=== PATIENT | female | born 1990 | race African-American/Black ===

== ENCOUNTER 2019-01-12 05:03 | Emergency (ER) | payer OTHER ==
[~2019-01-12] VITALS: Ht 154.9 cm; Wt 72.6 kg
[2019-01-12 06:56] LABS: URINE BILIRUBIN NEGATIVE (Negative); URINE BLOOD NEGATIVE (Negative); URINE CLARITY CLEAR; URINE COLOR YELLOW; URINE GLUCOSE-RANDOM* NEGATIVE (Negative); URINE KETONES NEGATIVE (Negative); URINE LEUKOCYTES-REFLEX NEGATIVE (Negative); URINE NITRITE-REFLEX NEGATIVE (Negative); URINE PROTEIN (DIPSTICK) NEGATIVE (Negative); URINE UROBILINOGEN 0.2 E.U./dl (0.2-1.0)
[2019-01-12] MEDS ORDERED: PROBIOTIC1 EAC7 PO (07:16)
[2019-01-12] MEDS ORDERED: NAPROSYN500 MG PO (07:29)
[2019-01-12] MEDS ORDERED: TRIAMCINOLONE A15 G3 TOP (07:29)
[2019-01-12] MEDS ORDERED: DOXYCYCLINE HY100 M3 PO (08:56)
[2019-01-12 09:00] VITALS: BP 93/61
== END 2019-01-12 09:23 | disposition home or self-care (01) ==
LOC: ER 05:03
PROVIDERS: Emergency Medicine
DX: M79.671 Pain in right foot (principal); L25.9 Unspecified contact dermatitis, unspecified cause; R10.2 Pelvic and perineal pain; F17.210 Nicotine dependence, cigarettes, uncomplicated; Z88.6 Allergy status to analgesic agent; Z88.5 Allergy status to narcotic agent

== ENCOUNTER 2019-01-16 12:52 | Emergency (ER) | payer OTHER ==
[~2019-01-16] VITALS: Ht 154.9 cm; Wt 71.2 kg
[~2019-01-16 12:52] MED LIST: DOXYCYCLINE HY100 M3 PO; NAPROSYN500 MG PO; PROBIOTIC1 EAC7 PO; TRIAMCINOLONE A15 G3 TOP
[2019-01-16] MEDS ORDERED: PRILOSEC OTC20 MG PO (14:46)
[2019-01-16 15:11] VITALS: BP 106/62
== END 2019-01-16 15:20 | disposition home or self-care (01) ==
LOC: ER 12:52
DX: R13.10 Dysphagia, unspecified (principal); R07.9 Chest pain, unspecified; F17.210 Nicotine dependence, cigarettes, uncomplicated; Z88.6 Allergy status to analgesic agent

== ENCOUNTER 2019-05-03 07:49 | Emergency (ER) | payer OTHER ==
[~2019-05-03] VITALS: Ht 154.9 cm; Wt 69.0 kg
[2019-05-03 07:49] VITALS: BP 107/73
[~2019-05-03 07:49] MED LIST changes: +PRILOSEC OTC20 MG PO
[2019-05-03] MEDS ORDERED: SUPER THERAVIT1 EACH PO (07:57)
[2019-05-03] MEDS ORDERED: HAIR, SKIN & N1 EAC2 PO (07:58)
[2019-05-03] MEDS ORDERED: BENTYL 20 MG TA20 M1 PO (08:11)
[2019-05-03] MEDS ORDERED: ZOFRAN ODT4 MG PO (08:11)
[2019-05-03] MEDS ORDERED: IMODIUM A-D2 MG PO (08:11)
== END 2019-05-03 08:23 | disposition home or self-care (01) ==
LOC: ER 07:49
DX: R19.7 Diarrhea, unspecified (principal); R21 Rash and other nonspecific skin eruption; L29.9 Pruritus, unspecified; F17.210 Nicotine dependence, cigarettes, uncomplicated; Z79.899 Other long term (current) drug therapy; Z88.6 Allergy status to analgesic agent

== ENCOUNTER 2019-05-08 15:14 | Emergency (ER) | payer OTHER ==
[~2019-05-08] VITALS: Ht 154.9 cm; Wt 69.0 kg
[~2019-05-08 15:14] MED LIST changes: +BENTYL 20 MG TA20 M1 PO; +HAIR, SKIN & N1 EAC2 PO; +IMODIUM A-D2 MG PO; +SUPER THERAVIT1 EACH PO; +ZOFRAN ODT4 MG PO
[2019-05-08 17:33] VITALS: BP 115/74
== END 2019-05-08 17:34 | disposition home or self-care (01) ==
LOC: ER 15:14
DX: J06.9 Acute upper respiratory infection, unspecified (principal); R05 Cough; F17.210 Nicotine dependence, cigarettes, uncomplicated; Z88.5 Allergy status to narcotic agent; Z88.6 Allergy status to analgesic agent; Z79.899 Other long term (current) drug therapy; Z98.890 Other specified postprocedural states; Z98.51 Tubal ligation status

== ENCOUNTER 2019-08-19 13:49 | Emergency (ER) | payer OTHER ==
[~2019-08-19] VITALS: Ht 154.9 cm; Wt 72.6 kg
[2019-08-19 15:01] LABS: ABSOLUTE NEUTROPHILS 9.8 thou/uL (1.4-8.2); BASOPHILS 0.3 % (0.0-2.0); HEMATOCRIT 39.3 % (37.0-47.0); HEMOGLOBIN 13.3 gm/dL (12.0-15.0); LYMPHOCYTES 24.1 % (24.0-44.0); MCH 31.1 pg (26.0-34.0); MCHC 33.7 g/dL (28.0-37.0); MCV 92.1 fL (80.0-100.0); MONOCYTES 3.7 % (1.0-8.0); PLATELET COUNT 349 thou/uL (150-400); POLYS 71.9 % (36.0-66.0); RBC 4.27 mil/uL (4.20-5.00); RDW 14.1 % (10.5-14.5); WBC 13.7 thou/uL (4.0-11.0)
[2019-08-19 15:13] LABS: ANION GAP 9 mmol/L (7-16); BUN 8 mg/dL (7-18); CALCIUM 9.1 mg/dL (8.5-10.1); CHLORIDE 102 mmol/L (98-107); CO2 28 mmol/L (21-32); CREATININE 0.9 mg/dL (0.6-1.0); GLUCOSE 137 mg/dL (74-106); POTASSIUM 3.4 mmol/L (3.5-5.1); SODIUM 139 mmol/L (136-145)
[2019-08-19 15:24] LABS: ALBUMIN 3.5 g/dL (3.4-5.0); MAGNESIUM 1.9 mg/dL (1.8-2.4); SGOT 14 U/L (15-37); SGPT 20 U/L (30-65); TOTAL BILIRUBIN 0.1 mg/dL (0.2-1.0); TOTAL PROTEIN 7.7 g/dL (6.4-8.2); TROPONIN-I <0.06 ng/mL (<0.06)
--- NOTE | 2019-08-19 16:09 | EKG ---
[facility] [place] [address] ELECTROCARDIOGRAM REPORT Name: ADELITA GALLO Room #: [facility]..#: [id number] Admission: 08/19/19 Attend Phys: Discharge: Date of : 86 Report #: [id number] THIS REPORT FOR: cc: ARVIND - [place] family physician/PCP ARVIND - [place] family physician/PCP Alessandro Lucio MD [facility] THIS REPORT FOR: //name// [facility] ED Test Date: 2019-08-19 Test Time: 14:57:08 Pat Name: ADELITA GALLO Department: Room: Gender: F [employer]: : 1990 Requested By: Ever Israel Order Number: [id number] MD: Alessandro Lucio Measurements Intervals [place] Rate: 69 P: 43 NV: 150 QRS: 53 QRSD: 83 T: 23 QT: 388 QTc: 416 Interpretive Statements Sinus rhythm No significant abnormality No previous ECG available for comparison Electronically Signed On 08-19-2019 16:09:00 CDT by Alessandro Lucio [email or web address] <ELECTRONICALLY SIGNED> By: Alessandro Lucio MD, [facility] 08/19/19 1609 [id number] Alessandro Lucio MD, FACC /EPI
[2019-08-19 16:28] LABS: URINE BILIRUBIN NEGATIVE (Negative); URINE BLOOD TRACE (Negative); URINE CLARITY CLEAR; URINE COLOR YELLOW; URINE GLUCOSE-RANDOM* TRACE (Negative); URINE KETONES NEGATIVE (Negative); URINE LEUKOCYTES-REFLEX NEGATIVE (Negative); URINE NITRITE-REFLEX NEGATIVE (Negative); URINE PROTEIN (DIPSTICK) NEGATIVE (Negative); URINE SPECIFIC GRAVITY >= 1.030 (1.005-1.035); URINE UROBILINOGEN 0.2 E.U./dl (0.2-1.0)
[2019-08-19 16:38] LABS: AMP/METHAMP Negative (Negative); BARBITURATES Negative (Negative); BENZODIAZEPINES Negative (Negative); COCAINE Negative (Negative); METHADONE Negative (Negative); OPIATES Negative (Negative); PCP Negative (Negative)
[2019-08-19 18:05] VITALS: BP 112/64
== END 2019-08-19 17:45 | disposition home or self-care (01) ==
LOC: ER 13:49
PROVIDERS: Emergency Medicine
DX: S00.83XA Contusion of other part of head, initial encounter (principal); S83.92XA Sprain of unspecified site of left knee, initial encounter; S63.614A Unspecified sprain of right ring finger, initial encounter; R55 Syncope and collapse; R35.0 Frequency of micturition; F17.210 Nicotine dependence, cigarettes, uncomplicated; Z79.899 Other long term (current) drug therapy; Z88.5 Allergy status to narcotic agent; W19.XXXA Unspecified fall, initial encounter; Y93.89 Activity, other specified; Y92.89 Other specified places as the place of occurrence of the external cause; Y99.8 Other external cause status

== ENCOUNTER 2020-03-03 13:17 | Emergency (ER) | payer OTHER ==
[~2020-03-03] VITALS: Ht 154.9 cm; Wt 73.5 kg
[2020-03-03] MEDS ORDERED: FLEXERIL PO (15:15)
[2020-03-03 15:17] VITALS: BP 99/65
== END 2020-03-03 15:16 | disposition home or self-care (01) ==
LOC: ER 13:17
DX: S16.1XXA Strain of muscle, fascia and tendon at neck level, initial encounter (principal); R51.9 Headache, unspecified; F17.210 Nicotine dependence, cigarettes, uncomplicated; Z98.890 Other specified postprocedural states; Z98.51 Tubal ligation status; Z88.5 Allergy status to narcotic agent; V49.59XA Passenger injured in collision with other motor vehicles in traffic accident, initial encounter; Y93.89 Activity, other specified; Y92.413 State road as the place of occurrence of the external cause; Y99.9 Unspecified external cause status

== ENCOUNTER 2020-07-22 08:19 | Emergency (ER) | payer OTHER ==
[~2020-07-22] VITALS: Ht 154.9 cm; Wt 76.2 kg
[~2020-07-22 08:19] MED LIST changes: +FLEXERIL PO
[2020-07-22 08:36] VITALS: BP 111/64
[2020-07-22] MEDS ORDERED: AUGMENTIN 875-1 EACH PO (09:19)
[2020-07-22] MEDS ORDERED: DEXTROMETHORPHAN PO (09:19)
[2020-07-22] MEDS ORDERED: GUAIFENESIN PO (09:19)
[2020-07-22] MEDS ORDERED: PHENYLEPHRINE PO (09:19)
== END 2020-07-22 09:20 | disposition home or self-care (01) ==
LOC: ER 08:19
DX: J06.9 Acute upper respiratory infection, unspecified (principal); H66.91 Otitis media, unspecified, right ear; F17.210 Nicotine dependence, cigarettes, uncomplicated; Z98.890 Other specified postprocedural states; Z98.51 Tubal ligation status; Z88.5 Allergy status to narcotic agent

== ENCOUNTER 2020-09-25 00:06 | Emergency (ER) | payer OTHER ==
[~2020-09-25] VITALS: Ht 154.9 cm; Wt 72.6 kg
[~2020-09-25 00:06] MED LIST changes: +AUGMENTIN 875-1 EACH PO; +DEXTROMETHORPHAN PO; +GUAIFENESIN PO; +PHENYLEPHRINE PO
[2020-09-25 04:28] VITALS: BP 121/80
== END 2020-09-25 04:29 | disposition home or self-care (01) ==
LOC: ER 00:06
DX: J02.9 Acute pharyngitis, unspecified (principal); Z20.822 Contact with and (suspected) exposure to COVID-19; F17.210 Nicotine dependence, cigarettes, uncomplicated; Z79.899 Other long term (current) drug therapy; Z88.5 Allergy status to narcotic agent

== ENCOUNTER 2021-03-30 11:08 | Emergency (ER) | payer OTHER ==
[~2021-03-30] VITALS: Ht 154.9 cm; Wt 77.6 kg
[2021-03-30 12:13] VITALS: BP 115/83
== END 2021-03-30 12:14 | disposition home or self-care (01) ==
LOC: ER 11:08
DX: G56.02 Carpal tunnel syndrome, left upper limb (principal); M25.532 Pain in left wrist; F17.210 Nicotine dependence, cigarettes, uncomplicated; Z98.890 Other specified postprocedural states; Z98.51 Tubal ligation status; Z88.6 Allergy status to analgesic agent